=== PATIENT | female | born 1965 | race Asian ===

== ENCOUNTER → 2020-02-21 | Outpatient (CLI) | payer BC ==
--- NOTE | 2020-02-27 08:54 | MM ---
Reason for exam: screening (asymptomatic). Last mammogram was performed 2 years and 2 months ago. History: Patient has history of other cancer at age 48. Family history of breast cancer in paternal grandmother at age 50. Physical Findings: A clinical breast exam by your physician is recommended on an annual basis and results should be correlated with mammographic findings. MG Screening Mammo w CAD Bilateral CC and MLO view(s) were taken. Prior study comparison: December 21, 2017, mammogram, performed at [facility]. September 17, 2015, mammogram, performed at [facility]. There are scattered fibroglandular densities. There is chronic nodularity in the left breast. Focal asymmetry right posterior inferior position MLO view only. ASSESSMENT: Incomplete: need additional imaging evaluation, BI-RAD 0 RECOMMENDATION: Special view mammogram of the right breast. If lesion persists on supplemental views, image directed ultrasound is recommended. [facility] will attempt to contact patient to return for supplemental views and ultrasound if indicated.
== END | disposition home or self-care (01) ==
LOC: RADMAMWWP 14:02
PROVIDERS: ATTEND Family Medicine
DX: Z12.31 Encounter for screening mammogram for malignant neoplasm of breast (principal)
CPT/HCPCS: 77067

== ENCOUNTER → 2020-03-03 | Outpatient (CLI) | payer BC ==
--- NOTE | 2020-03-03 09:58 | MM ---
Reason for exam: additional evaluation requested from abnormal screening. Last mammogram was performed less than 1 month ago. History: Patient has history of other cancer at age 48. Family history of breast cancer in paternal grandmother at age 50. Physical Findings: Nurse did not find any significant physical abnormalities on exam. MG Work Up Mamm w CAD RT Spot compression CC, spot compression MLO, LM, XCCL, and XCCM view(s) were taken of the right breast. Prior study comparison: February 21, 2020, bilateral MG screening mammo w CAD. December 21, 2017, mammogram, performed at [facility]. There are scattered fibroglandular densities. No significant new findings when compared with previous films. These results were verbally communicated with the patient and result sheet given to the patient on 03/03/20. ASSESSMENT: Incomplete: need additional imaging evaluation, BI-RAD 0 RECOMMENDATION: Ultrasound of the right breast.
--- NOTE | 2020-03-03 09:59 | USB ---
Reason for exam: additional evaluation requested from abnormal screening. History: Patient has history of other cancer at age 48. Family history of breast cancer in paternal grandmother at age 50. US Breast Workup Limited RT Right limited breast ultrasound including focal area of concern, retroareolar and axilla demonstrates no cystic or solid lesion seen. These results were verbally communicated with the patient and result sheet given to the patient on 03/03/20. ASSESSMENT: Negative, BI-RAD 1 RECOMMENDATION: Return to routine screening mammogram schedule for both breasts.
== END | disposition home or self-care (01) ==
LOC: RADMAMWWP 08:28
PROVIDERS: ATTEND Family Medicine
DX: R92.8 Other abnormal and inconclusive findings on diagnostic imaging of breast (principal)
CPT/HCPCS: 77065

== ENCOUNTER 2020-08-12 08:27 | Day surgery (SDC) | payer BC ==
[2020-08-10 10:47] VITALS: BMI 35.7
[~2020-08-12 08:27] MED LIST: LACTATED RINGERS 1,000 ML IV SCH; LIDOCAINE 1% (10MG/ML) FOR IV START INTRADERMA PRN
[2020-08-12 09:12] VITALS: TEMP 97.5
[2020-08-12] MEDS ORDERED: LIDOCAINE 1% INJ 10MG/ML (20 ML MDV) ONE (09:32)
[2020-08-12] MEDS ORDERED: PROPOFOL 10 MG/ML 20 ML VIAL IV ONE (09:32)
--- NOTE | 2020-08-12 09:59 | P.PCN ---
Date of Procedure: 08/12/20 Procedure(s) Performed: Brief history: Patient is a pleasant 54-year-old white female scheduled for an elective upper endoscopy as well as colonoscopy as a part of evaluation of evaluation of intermittent dysphagia to solids for the last several months duration. She has these episodes once or twice a month. She is also scheduled for a screening colonoscopy today. Procedure performed: Esophagogastroduodenoscopy with biopsy and dilation Colonoscopy with snare polypectomy Preoperative diagnosis: Intermittent dysphagia to solids Screening for colon cancer Anesthesia: MAC Procedure: After informed consent was obtained from the patient was brought into the endoscopy unit and IV sedation was administered by anesthesia under continuous monitoring. Initially upper endoscopy was done. The Olympus GF 160 video endoscope was inserted inserted into the mouth and esophagus intubated without any difficulty and was gradually advanced into the stomach and duodenum and carefully examined. The bulb and second part of the duodenum appeared normal. The scope was then withdrawn into the stomach adequately insufflated with air and upon careful examination the antrum and body, cardia and fundus appeared normal. The scope was then withdrawn into the esophagus. Small HH seen The GE junction was located at 40 cm to the incisors. It appeared regular with no erythema erosions or ulcerations. There was a distal esophageal Schatzki's ring noted which was dilated using 15 and 16 a half TTS balloon for 30 seconds. Findings there was some oozing at the site of mucosal tear. Rest of the esophagus appeared normal. Biopsies were done from the distal esophagus. Patient tolerated the procedure well. At this time the patient continued to remain sedation. Initial digital rectal examination was normal. Olympus CF 160 video colonoscope was then inserted into the rectum and gradually advanced to the cecum without any difficulty. Careful examination was performed as the scope was gradually being withdrawn. The prep was excellent. The cecum, ascending colon, transverse colon, descending colon, appeared normal. In the distal sigmoid colon there was a 7-8 mm polyp that was removed by snare polypectomy. Rest of the sigmoid colon and rectum appeared normal. Retroflexion was performed in the rectum and no lesions were noted. Patient tolerated the procedure well. Impression: 1. Upper endoscopy revealed distal esophageal Schatzki's ring status post balloon dilation using 15 and 16 a half TTS balloon as described above and a small hiatal hernia 2. Colonoscopy revealed 7-8 mm distal sigmoid colon polyp status post snare polypectomy Recommendations: Findings of this examination were discussed with the patient as well as her family. She was advised to be on a clear liquid diet for today. Follow with the biopsy results. If the biopsy reveals adenoma she can have a repeat colo noscopy in 5 years. She will be seen in office in 3 months.
[2020-08-12 10:03] VITALS: RESP 18
[2020-08-12 10:24] VITALS: BP 145/78; PULSE 78
== END 2020-08-12 10:30 | disposition home or self-care (01) ==
LOC: ORWHC2ENDO 08:27
PROVIDERS: ATTEND Internal Medicine Gastroenterology
DX: Z12.11 Encounter for screening for malignant neoplasm of colon (principal); K22.2 Esophageal obstruction; K20.90 Esophagitis, unspecified without bleeding; K63.5 Polyp of colon; Z90.49 Acquired absence of other specified parts of digestive tract; E89.0 Postprocedural hypothyroidism; Z98.890 Other specified postprocedural states; Z79.890 Hormone replacement therapy
CPT/HCPCS: 81025; 88305; 45385; 43239; 43249; J2001; J2704; C1726

== ENCOUNTER → 2022-09-06 | Outpatient (CLI) | payer BC ==
--- NOTE | 2022-09-07 09:46 | MM ---
Reason for Exam: Screening (asymptomatic). Last mammogram was performed 2 year(s) and 6 month(s) ago. Patient History: Menarche at age 13. First Full-Term at age 31. Late child-bearing (after 30). Postmenopausal. Other cancer, age 48. Paternal grandmother had breast cancer, age 50. Risk Values: Nadja 5 year model risk: 1.6%. NCI Lifetime model risk: 11.2%. Prior Study Comparison: 12/21/2017 Screening Mammogram, [facility]. 02/21/2020 Bilateral Screening Mammogram, [facility]. 03/03/2020 Right Diagnostic Mammogram, [facility]. Tissue Density: There are scattered fibroglandular densities. Findings: Analyzed By CAD. There is no suspicious group of microcalcifications or new suspicious mass in either breast. Overall Assessment: Negative, BI-RAD 1 Management: Screening Mammogram of both breasts in [address] [facility] will attempt to contact patient to return for supplemental views and ultrasound if indicated. Patient should continue monthly self-breast exams. A clinical breast exam by your physician is recommended on an annual basis. This exam should not preclude additional follow-up of suspicious palpable abnormalities. Note on Nadja scores and lifetime risk: 1. A Nadja score greater than 3% is considered moderate risk. If this is the case, consider specialist referral to assess eligibility for a risk reducing agent. 2. If overall lifetime risk for the development of breast cancer is 20% or higher, the patient may qualify for future screening with alternating mammogram and breast MRI. Electronically signed and approved by: Juliano Álvarez DO
== END | disposition home or self-care (01) ==
LOC: RADMAMWWP 09:34
PROVIDERS: ATTEND Internal Medicine
DX: Z12.31 Encounter for screening mammogram for malignant neoplasm of breast (principal); Z78.0 Asymptomatic menopausal state; Z80.3 Family history of malignant neoplasm of breast
CPT/HCPCS: 77063; 77067

== ENCOUNTER → 2023-12-12 | Outpatient (CLI) | payer BC ==
--- NOTE | 2023-12-12 11:46 | XR ---
EXAMINATION TYPE: XR shoulder complete RT DATE OF EXAM: 12/12/2023 10:37 AM INDICATION: Patient age:Female; 58 years old; Reason for study: M25.511 Shoulder pain right; COMPARISON: None TECHNIQUE: The right shoulder was examined in AP, internally rotated and scapular Y projections. . FINDINGS: No evidence of acute osseous pathology, joint dislocation, or soft tissue swelling. Tiny calcificatio n along the superior aspect of the humeral head. The remaining portions of the visualized chest are u nremarkable. IMPRESSION: 1. No acute osseous pathology. 2. Calcific tendinitis likely from the supraspinatus. [facility], , 12/12/2023 11:43 AM
[2023-12-12 15:24] LABS: Basophils # (A) 0.06 X 10*3/uL (0.00-0.10); Basophils % (A) 0.7 %; Eosinophils # (A) 0.31 X 10*3/uL (0.04-0.35); Eosinophils % (A) 3.7 %; HCT 39.7 % (37.2-46.3); HGB 13.3 g/dL (12.0-15.0); Lymphocytes # (A) 3.46 X 10*3/uL (0.90-5.00); Lymphocytes % (A) 41.1 %; MCH 29.9 pg (27.0-32.0); MCHC 33.5 g/dL (32.0-37.0); MCV 89.2 FL (80.0-97.0); Mean Platelet Volume 9.6 FL (9.5-12.2); Monocytes # (A) 0.52 X 10*3/uL (0.20-1.00); Monocytes % (A) 6.2 %; NRBC Per 100 WBC 0 X 10*3/uL (0.00-0.01); Neutrophils # (A) 4.03 X 10*3/uL (1.80-7.70); Neutrophils % (A) 47.9 %; Platelet Count 271 X 10*3/uL (140-440); RBC 4.45 X 10*6/uL (4.10-5.20); RDW 12.3 % (11.5-14.5); WBC 8.41 X 10*3/uL (4.50-10.00)
[2023-12-12 16:31] LABS: Thyroid Peroxidase Antibodies 9.9 U/mL (0.0-33.0)
[2023-12-12 16:44] LABS: ALT 36 U/L (8-44); AST 24 U/L (13-35); Albumin 4.1 g/dL (3.8-4.9); Albumin/Globulin Ratio 1.46 Ratio (1.60-3.17); Alkaline Phosphatase 75 U/L (41-126); BUN/Creat Ratio 18.29 Ratio (12.00-20.00); Blood Urea Nitrogen 12.8 mg/dL (9.0-27.0); Calcium 8.8 mg/dL (8.7-10.3); Carbon Dioxide 23.6 mmol/L (21.6-31.8); Chloride 103 mmol/L (96-109); Chol/HDL Ratio 3.35 Ratio; Globulin 2.8 g/dL (1.6-3.3); Glucose 174 mg/dL (70-110); LDL Cholesterol,Calculated 73.9 mg/dL (0.0-131.0); Magnesium 1.8 mg/dL (1.5-2.4); Potassium 4.3 mmol/L (3.5-5.5); Sodium 140 mmol/L (135-145); T4, Free (Free Thyroxine) 1.97 ng/dL (0.80-1.80); Total Bilirubin 0.7 mg/dL (0.3-1.2); Total Protein 6.9 g/dL (6.2-8.2)
--- NOTE | 2023-12-12 17:39 | BD ---
EXAMINATION TYPE: Axial Bone Density DATE OF EXAM: 12/12/2023 CLINICAL HISTORY: 58 years old Female. ICD-10 CODE: Z78.0 ASYMPTOMATIC MENOPAUSAL STA , Z78.0 Height: 64" Weight: 248lbs FRAX RISK QUESTIONS: Alcohol (3 or more units per day): No Family History (Parent hip fracture): No Glucocorticoids (More than 3mos): No (Ex: prednisone, prednisolone, methylprednisolone, dexamethasone, and hydrocortisone). History of Fracture in Adulthood: Yes Secondary Osteoporosis: 1. Type 1 Diabetes: No 2. Hyperthyroidism: No 3. Menopause before 45: No 4. Malnutrition: No 5. Chronic liver disease: No Rheumatoid Arthritis: No Current Tobacco Use: No RISK FACTORS HISTORY OF: Hip Fracture (Right/Left): No Spine Fracture: No History of Wrist Fracture: No Surgery to Spine/Hip(right/left)/Wrist (right/left): No MEDICATIONS: Thyroid Medications: Yes Which medication: Levothyroxine How Long: Approx. 15 years Osteoporosis Medications: No EXAM MEASUREMENTS: Bone mineral densitometry was performed using the [employer]. Bone mineral density as measured about the Lumbar spine is: ----- L1-L4(G/cm2): 1.573 T Score Values are as follows: ----- L1: 2.1 ----- L2: 2.9 ----- L3: 3.8 ----- L4: 3.9 ----- L1-L4: 3.3 Z Score Values are as follows: ----- L1: 1.9 ----- L2: 2.7 ----- L3: 3.6 ----- L4: 3.7 ----- L1-L4: 3.1 Baseline @MPH Bone mineral density about the R hip (g/cm2): 1.258 Bone mineral density about the L hip (g/cm2): 1.213 T Score values are as follows: -----R Neck: 0.6 -----L Neck: 0.2 -----R Total: 2.0 -----L Total: 1.6 Z Score values are as follows: -----R Neck: 0.9 -----L Neck: 0.5 -----R Total: 1.9 -----L Total: 1.6 Baseline @MPH FRAX%s: The graph provided illustrates a 8.3% chance for a major osteoporotic fx and a 0.1% chance fo r the hips probability for fx in 10 years time. IMPRESSION: Normal (Values between +1 and -1 indicate normal bone mass). Consider repeating this study in 5 year s or sooner if there is some new clinical indication. NOTE: T-SCORE=SD OF THE YOUNG ADULT MEAN. [facility], , 12/12/2023 5:37 PM
--- NOTE | 2023-12-13 11:22 | MM ---
Reason for Exam: Screening (asymptomatic). Last mammogram was performed 1 year(s) and 3 month(s) ago. Patient History: Menarche at age 13. First Full-Term at age 31. Late child-bearing (after 30). Postmenopausal. Other cancer, age 48. Paternal grandmother had breast cancer, age 50. Risk Values: Nadja 5 year model risk: 1.8%. NCI Lifetime model risk: 10.7%. Prior Study Comparison: 02/21/2020 Bilateral Screening Mammogram, [facility]. 03/03/2020 Right Diagnostic Mammogram, [facility]. 09/06/2022 Bilateral MG 3D screening mammo w/cad, [facility]. Tissue Density: There are scattered areas of fibroglandular density. Findings: Analyzed By CAD. Chronic low axillary tail lymph node on the left. There is no suspicious group of microcalcifications or new suspicious mass in either breast. Overall Assessment: Negative, BI-RAD 1 Management: Screening Mammogram of both breasts in 1 year. . Patient should continue monthly self-breast exams. A clinical breast exam by your physician is recommended on an annual basis. This exam should not preclude additional follow-up of suspicious palpable abnormalities. Note on Nadja scores and lifetime risk: 1. A Nadja score greater than 3% is considered moderate risk. If this is the case, consider specialist referral to assess eligibility for a risk reducing agent. 2. If overall lifetime risk for the development of breast cancer is 20% or higher, the patient may qualify for future screening with alternating mammogram and breast MRI. [facility], , 12/13/2023 11:20 AM. Electronically signed and approved by: Gerry Tuttle M.D. Radiologist
== END | disposition home or self-care (01) ==
LOC: RADMAMWWP 09:02
PROVIDERS: ATTEND Internal Medicine
CPT/HCPCS: 77063; 77067; 77080; 80053; 80061; 82043; 82306; 82570; 83036; 83735; 84432; 84439; 84443; 85025; 86376; 86800

== ENCOUNTER → 2023-12-19 | Outpatient (CLI) | payer BC ==
--- NOTE | 2023-12-20 18:24 | US ---
EXAMINATION TYPE: US thyroid st tissue head/neck DATE OF EXAM: 12/19/2023 COMPARISON: NONE CLINICAL INDICATION: Female, 58 years old with history of E03.9 HYPOTHYROIDISM; Hx of thyroidectomy. Pt had thyroid cancer 12 years ago TECHNIQUE: Grayscale and color Doppler imaging of the thyroid gland. FINDINGS: GLAND SIZE: Right Lobe: Surgically absent Left Lobe: Surgically absent Isthmus Thickness: Surgically absent Normal appearing lymph nodes seen in bilateral neck. IMPRESSION: No suspicious recurrent thyroid masses. 2017 ACR TI-RADS LEVEL: *Highest TI-RADS level nodule reported [email or web address] [facility], Workstation: [email or web address], 12/20/2023 6:21 PM
== END | disposition home or self-care (01) ==
LOC: RADUSWWP 08:29
PROVIDERS: ATTEND Internal Medicine
DX: E03.9 Hypothyroidism, unspecified (principal)
CPT/HCPCS: 76536